=== PATIENT | female | born 1950 | race African-American/Black ===

== ENCOUNTER → 2017-03-11 | Outpatient (CLI) | payer OTHER, MEDICARE ==
[~2017-03-11] VITALS: Ht 175.3 cm; Wt 102.1 kg
[~2017-03-11] MED LIST: AMIT50TA PO; AMLO5TAB2 PO; ATOR20TA58 PO; BACL10TA PO; Biotin PO; CALC-98 PO; CRANBERRY PO; ESOM40CA PO; EZET10TA18 PO; Fish Oil PO; GARLIC OIL PO; LIDOCAINE 1% / SOD BICARB 8.4% 20 ML VIAL. IJ ONE; LIDOCAINE 2%/EPI 1:100,000 20 ML VIAL. IJ ONE; OMEP10SU PO; TRAM-48 PO; UBID50TA PO; Vitamin C PO; [UNRECOGNIZED DRUG - OTHER] PO; provastatin PO; tylenol
[2017-03-11 09:28] VITALS: BP 171/76
--- NOTE | 2017-03-12 09:32 | RAD ---
Indication suspect calcifications left breast. Image guided biopsy was discussed with the patient. The risks of infection and bleeding were outlined. The patient understood the risks associated with the procedure and wished to proceed. Note is made of the diagnostic procedure targeted to the left breast 10/15/2016. The suspect calcifications in the left breast were identified and targeted. The skin was prepped and draped in the routine fashion. Initial anesthesia was obtained with buffered lidocaine. The biopsy needle was introduced into the breast and deeper anesthesia was obtained with lidocaine epinephrine. Tissue was retrieved and a specimen radiograph was performed. Fountain Helper microcalcifications were retrieved. A biopsy clip was deployed at the biopsy site. Following the biopsy the patient was transferred to a dedicated mammographic suite and conventional mammograms of the left breast were obtained. The biopsy clip is noted at approximately the 12:00 position of the breast. No unexpected finding is seen. The patient tolerated the biopsy procedure unremarkably. The biopsy site was dressed in routine fashion and the patient discharged with appropriate instructions. IMPRESSION: Successful sampling of indeterminate calcifications in the left breast under stereotactic guidance
== END | disposition home or self-care (01) ==
LOC: MAMMO 08:39
PROVIDERS: ATTEND Surgery
DX: R92.0 Mammographic microcalcification found on diagnostic imaging of breast (principal)
CPT/HCPCS: 19085; 77022; C1713; G0206; J3490; 77065